=== PATIENT | male | born 2000 | race Caucasian/White ===

== ENCOUNTER 2021-11-13 11:33 | Emergency (ER) | payer MEDICAID ==
[~2021-11-13] VITALS: Ht 180.3 cm; Wt 70.3 kg
[2021-11-13] MEDS ORDERED: DOXYCYCLINE HYCLATE 100 MG TABLET PO ONE ×2 (11:38→12:00)
[2021-11-13] MEDS ORDERED: CEFTRIAXONE 500 MG VIAL IM ONE (12:00)
--- NOTE | 2021-11-13 12:26 | NUR ---
ASSUME CARE IN ROOM ED 3A WITH REPORT OF STI AND THE PATIENT MEDICATED PER MD'S ORDER.
[2021-11-13] MEDS ORDERED: LIDOCAINE HCL 1% 20 ML VIAL IJ ONE (12:45)
[2021-11-13] MEDS ORDERED: CEFTRIAXONE 500 MG VIAL ONE (12:49)
[2021-11-13] MEDS ORDERED: LIDOCAINE HCL 1% 20 ML VIAL ONE (12:51)
[2021-11-13 13:05] LABS: *BILIRUBIN,URIN NEGATIVE (NEGATIVE); *CLARITY,URINE SLIGHTLY CLOUDY (CLEAR); *COLOR,URINE LIGHT YELLOW (YELLOW); *KETONES,URINE 1+ (NEGATIVE); *UROBILINOGEN,URINE 0.2 E.U./dl (NORMAL); LEUKOCYTE ESTERASE ,URINE 2+ (NEGATIVE); NITRITE, URINE NEGATIVE (NEGATIVE); UGLUCOSE NEGATIVE (NEGATIVE)
[2021-11-13] MEDS ORDERED: DOXY100T2 PO (13:24)
[2021-11-13 13:33] LABS: *BLOOD, URINE TRACE (NEGATIVE)
[2021-11-13 13:38] LABS: BACTERIA,URINE FEW /HPF (NONE SEEN); RBC,URINE 0-3 /HPF (0-3); SQUAMOUS EPITHELIAL CELL,UR FEW /HPF (NONE SEEN); URINE AMORPHOUS PHOSPHATES MODERATE /HPF; WBC,URINE 20-50 /HPF (0-3)
[2021-11-13 14:06] VITALS: BP 143/86
== END 2021-11-13 13:46 | disposition home or self-care (01) ==
LOC: ER 11:37
DX: N39.0 Urinary tract infection, site not specified (principal); Z20.2 Contact with and (suspected) exposure to infections with a predominantly sexual mode of transmission
CPT/HCPCS: 99283; 81001; 87086; 96372; J0696; J3490; A4663